=== PATIENT | female | born 1940 | race Caucasian/White ===

== ENCOUNTER 2021-07-23 15:58 | Inpatient (IN) | payer MEDICARE ==
[~2021-07-23] VITALS: Ht 152.4 cm; Wt 52.6 kg
[2021-07-23] MEDS ORDERED: ATOR20TA PO (16:18)
[2021-07-23] MEDS ORDERED: MAGN400O6 PO (16:18)
[2021-07-23] MEDS ORDERED: QUET25TA PO (16:18)
[2021-07-23] MEDS ORDERED: DOCU240C26 PO (16:18)
[2021-07-23] MEDS ORDERED: ASCO500C18 PO (16:18)
[2021-07-23] MEDS ORDERED: DIVA-78 PO (16:18)
[2021-07-23] MEDS ORDERED: [UNRECOGNIZED DRUG - CODE] PO (16:33)
[2021-07-23] MEDS ORDERED: TEMA7.5C2 PO (16:33)
[2021-07-23] MEDS ORDERED: ZINC50TA71 PO (16:33)
[2021-07-23] MEDS ORDERED: MAG355OR18 PO (16:33)
[2021-07-23] MEDS ORDERED: COLC0.6C3 PO (16:33)
[2021-07-23] MEDS ORDERED: BENA20TA9 PO (16:33)
[2021-07-23] MEDS ORDERED: LORA-258 PO (16:33)
[2021-07-23] MEDS ORDERED: CYAN-10 IJ (16:33)
[2021-07-23] MEDS ORDERED: MULT-213 PO (16:33)
[2021-07-23] MEDS ORDERED: ACET-2154 PO (16:33)
[2021-07-23] MEDS ORDERED: DIVA250T4 PO (16:33)
[2021-07-23] MEDS ORDERED: QUET100T PO (16:33)
[2021-07-23] MEDS ORDERED: FAMO20TA8 PO (16:33)
[2021-07-23] MEDS ORDERED: DIVA125T2 PO (16:33)
[2021-07-23] MEDS ORDERED: ZINC SULFATE PO (16:33)
[2021-07-23] MEDS ORDERED: PSYL660P17 PO (16:35)
[2021-07-23] MEDS ORDERED: SIME80TA15 PO (16:35)
[2021-07-23] MEDS ORDERED: MEMA10TA PO (16:35)
[2021-07-23] MEDS ORDERED: SUVO5TAB PO (16:35)
[2021-07-23] MEDS ORDERED: ATEN50TA PO (16:35)
[2021-07-23] MEDS ORDERED: NA P133E RC (16:35)
[2021-07-23] MEDS ORDERED: CHOL200026 PO (16:37)
[2021-07-23 16:51] LABS: HEMATOCRIT 32.7 % (31.2-41.9); MEAN CORPUSCULAR HEMOGLOBIN 30.6 uug (24.7-32.8); MEAN CORPUSCULAR VOLUME 91.2 fL (75.5-95.3); PLATELET COUNT (AUTO) 179 K/uL (179-408)
[2021-07-23 17:00] LABS: CARBON DIOXIDE 30 mmol/L (21-32); CHLORIDE 105 mmol/L (98-107); ETHANOL < 3 MG/DL (0-0); GLUCOSE 110 mg/dL (74-106); POTASSIUM 4.4 mmol/L (3.5-5.1); UREA NITROGEN, BLOOD 32 mg/dL (7-18)
[2021-07-23 17:06] LABS: ACETAMINOPHEN < 2.0 ug/mL (10-30)
[2021-07-23 17:08] LABS: ALANINE AMINOTRANSFERASE 22 U/L (14-59); ALKALINE PHOSPHATASE 54 U/L (50-136); ASPARTATE AMINOTRANSFERASE 13 U/L (15-37); BILIRUBIN,DIRECT < 0.1 mg/dL (0.0-0.2); BILIRUBIN,TOTAL 0.2 mg/dL (0.2-1.0); TOTAL PROTEIN, SERUM 6.1 g/dL (6.4-8.2)
[2021-07-23 17:13] LABS: THYROID STIMULATING HORMONE 2.064 mIU/mL (0.358-3.740)
[2021-07-23] MEDS ORDERED: LORAZEPAM 2 MG/1 ML VIAL IM ONE ×2 (17:30→21:30)
--- NOTE | 2021-07-23 17:31 | NUR ---
PATIENT MEDICAL CLEARED BY DR TOLLIVER. CALLED [facility] WILL COME TO EVALUATE PATIENT.
[2021-07-23] MEDS ORDERED: LORAZEPAM 2 MG/1 ML VIAL ONE ×2 (17:36→21:44)
--- NOTE | 2021-07-23 22:12 | NUR ---
pt admitted to mental health after being evaluated in the department by PET packaging machine operator. pt was found to be a danger to her self. Accordig to report rec'd upon dining room captain arrival, pt had been verbally and physically absubive towards other residents and the staff. pt has been unwilling to follow direction since arriving in the dept, this evening. pt is shouting curse words and demading various items, when given requested item pt is longer interested in it. Report given to Gil on accepting unit, all paerwork accounted for including original hold. vitals stable
[2021-07-23] MEDS ORDERED: MAGNESIUM HYDROXIDE 30 ML LIQUID UDC PO PRN (22:15)
[2021-07-23] MEDS ORDERED: BLOOD SUGAR DIAGNOSTIC 1 EACH STRIP VI ONE (22:15)
[2021-07-23] MEDS ORDERED: MAG HYDROX/AL HYDROX/SIMETH 30 ML LIQUID UDC PO PRN (22:15)
[2021-07-23 22:30] VITALS: BP 134/53
--- NOTE | 2021-07-24 02:31 | NUR ---
Received to care around 2230 from the ER, on a 72 hour hold for danger to others.gravely disabled, A transfer from [place]. According to the hold, she verbally abusive at her facility, lashing out and attempting to kill staff, non compliant with medications, spitting at other residents, paranoid and suspicious that people were talking behind her back, and that staff were trying to steal from her, and she also attempted to leave the facility. Upon arrival, she was a little groggy, after getting an IM injection of Ativan, in the ER. She was oriented to person only, having no recollection of previous events, nor knowing where she was, or how she got here. She fell asleep fairly quickly after arriving, and has been asleep ever since, except for one episode of going to the bathroom, which she needed assistance with, due to unsteady gait. She was verbally hostile, and easily agitated, but went right back to sleep, with no distress, noted.
--- NOTE | 2021-07-24 02:43 | NUR ---
Addendum;pt was advised of her hold, and given patients rights handbook.
[2021-07-24 07:30] VITALS: BP 110/46
[2021-07-24] MEDS ORDERED: MAG HYDROX/AL HYDROX/SIMETH 30 ML LIQUID UDC PO PRN (08:45)
[2021-07-24] MEDS ORDERED: MAGNESIUM HYDROXIDE 30 ML LIQUID UDC PO PRN (08:45)
[2021-07-24] MEDS ORDERED: FLEET ENEMA 133 ML BOTTLE RC PRN (08:45)
[2021-07-24] MEDS ORDERED: Medication Not On Formulary EA (Ascorbic Acid (Vitamin C) 500 MG) PO SCH (09:00)
[2021-07-24] MEDS ORDERED: Medication Not On Formulary EA (Cholecalciferol (Vitamin D3) (Vitamin D3) 1 TAB) PO SCH (09:00)
[2021-07-24] MEDS ORDERED: Medication Not On Formulary EA (Colchicine 0.6 MG) PO SCH (09:00)
[2021-07-24] MEDS ORDERED: ZINC GLUCONATE 50 MG PO SCH (09:00)
[2021-07-24] MEDS ORDERED: Medication Not On Formulary EA (Multivitamins W-Minerals (Multivitamin With Minerals) 1 PO SCH (09:00)
[2021-07-24] MEDS ORDERED: Medication Not On Formulary EA (Docusate Calcium 240 MG) PO SCH (09:00)
[2021-07-24] MEDS: CHOLECALCIFEROL 1,000 UNIT TABLET PO SCH (10:03)
[2021-07-24] MEDS: DOCUSATE SODIUM 250 MG CAPSULE PO SCH (10:03)
[2021-07-24] MEDS: COLCHICINE 0.6 MG TABLET PO SCH (10:03)
[2021-07-24] MEDS: ASCORBIC ACID 500 MG TABLET PO SCH (10:03)
[2021-07-24] MEDS: MULTIVIT, IRON, MIN NO. 8, FA TABLET PO SCH (10:03)
[2021-07-24] MEDS: MEMANTINE HCL 5 MG TABLET PO SCH ×2 (10:03→16:00)
[2021-07-24] MEDS: FAMOTIDINE 20 MG TABLET PO SCH (10:03)
[2021-07-24] MEDS: BENAZEPRIL HCL 10 MG TABLET PO SCH (10:03)
[2021-07-24] MEDS: BOOST PLUS 237 ML LIQUID (VERY VANILLA) PO SCH ×2 (10:04→17:00)
[2021-07-24] MEDS: SIMETHICONE 80 MG TAB.CHEW PO SCH (10:04)
[2021-07-24] MEDS: DIVALPROEX SPRINKLE 125 MG CAP.SPRINK PO SCH ×3 (12:06→20:45)
[2021-07-24] MEDS: QUETIAPINE FUMARATE 25 MG TABLET PO SCH ×2 (12:06→16:00)
[2021-07-24 16:00] VITALS: BP 129/42
[2021-07-24] MEDS ORDERED: CYANOCOBALAMIN 1000 MCG/ML VIAL IM SCH (17:00)
[2021-07-24 20:00] VITALS: BP 159/60
[2021-07-24] MEDS ORDERED: ATORVASTATIN 20 MG TABLET PO SCH (21:00)
[2021-07-24] MEDS ORDERED: QUETIAPINE FUMARATE 25 MG TABLET PO SCH (21:00)
[2021-07-24] MEDS: LORAZEPAM 0.5 MG TABLET PO PRN (21:44)
[2021-07-24] MEDS: ACETAMINOPHEN 325 MG TABLET PO PRN (21:45)
[2021-07-24] MEDS: TEMAZEPAM 7.5 MG CAPSULE PO PRN (23:28)
--- NOTE | 2021-07-25 04:30 | NUR ---
Received to care, up in troy chair, confused, forgetful, demanding, and verbally abusive. PRN Ativan and Restoril were both given before midnight, and she went to sleep. She was assisted to the bathroom twice during the night, but continues to sleep. No distress, noted.
[2021-07-25] MEDS: MULTIVIT, IRON, MIN NO. 8, FA TABLET PO SCH (08:22)
[2021-07-25] MEDS: CHOLECALCIFEROL 1,000 UNIT TABLET PO SCH (08:22)
[2021-07-25] MEDS: ASCORBIC ACID 500 MG TABLET PO SCH (08:22)
[2021-07-25] MEDS: DIVALPROEX SPRINKLE 125 MG CAP.SPRINK PO SCH ×3 (08:22→17:37)
[2021-07-25] MEDS: QUETIAPINE FUMARATE 25 MG TABLET PO SCH ×3 (08:22→17:38)
[2021-07-25] MEDS: ZINC SULFATE 220 MG CAPSULE PO SCH (08:23)
[2021-07-25] MEDS: MEMANTINE HCL 5 MG TABLET PO SCH ×2 (08:23→17:37)
[2021-07-25] MEDS: DOCUSATE SODIUM 250 MG CAPSULE PO SCH (08:23)
[2021-07-25] MEDS: COLCHICINE 0.6 MG TABLET PO SCH (08:23)
[2021-07-25] MEDS: FAMOTIDINE 20 MG TABLET PO SCH (08:23)
[2021-07-25] MEDS: BENAZEPRIL HCL 10 MG TABLET PO SCH (08:24)
[2021-07-25] MEDS: SIMETHICONE 80 MG TAB.CHEW PO SCH (08:24)
[2021-07-25] MEDS: BOOST PLUS 237 ML LIQUID (VERY VANILLA) PO SCH ×2 (08:25→17:40)
[2021-07-25 08:33] VITALS: BP 110/52
[2021-07-25] MEDS: NITROFURANTOIN/NITROFURAN MAC 100 MG CAPSULE PO SCH ×2 (14:09→22:04)
[2021-07-25] MEDS ORDERED: OLANZAPINE 10 MG VIAL IM ONE (14:30)
--- NOTE | 2021-07-25 14:46 | NUR ---
Patient became agitated, aggressive, combative, bitting, spitting, scratching staff, trying to jump out of the chair, verbally abusive calling females "cunt", disoriented, confused, forgetful, accusatory saying "I'm going to calos you and this hospital". Dr. Jimenez was called and ordered Zyprexa 5 mg IM, medication was given at 14:35, will be monitored for effectiveness. Two nurses were necessary to administer medication in a safe way, but no force was needed or applied. Medication was administer in the left deltoid. Fall and safety precautions implemented.
[2021-07-25 15:40] LABS: *BILIRUBIN,URIN NEGATIVE (NEGATIVE); *BLOOD, URINE NEGATIVE (NEGATIVE); *CLARITY,URINE CLEAR (CLEAR); *COLOR,URINE YELLOW (YELLOW); *KETONES,URINE TRACE (NEGATIVE); *UROBILINOGEN,URINE 0.2 E.U./dl (NORMAL); LEUKOCYTE ESTERASE ,URINE TRACE (NEGATIVE); NITRITE, URINE NEGATIVE (NEGATIVE); UGLUCOSE NEGATIVE (NEGATIVE)
[2021-07-25 15:58] VITALS: BP 119/119
--- NOTE | 2021-07-25 16:01 | NUR ---
Received patient awake in her room. A/O X 1-2 to person. Pt. is confused, forgetful, disoriented, accusatory, cussing at staff, agitated, hyperverbal. Compliant with medications. No facial grimaces, frowning indicating pain. Respirations are regular and unlabored. Vital signs within normal limits. Reassurance given. Fall and safety precautions implemented.
[2021-07-25 19:14] LABS: BACTERIA,URINE FEW /HPF (NONE SEEN); RBC,URINE 0-3 /HPF (0-3); SQUAMOUS EPITHELIAL CELL,UR NONE SEEN /HPF (NONE SEEN)
[2021-07-25 20:11] VITALS: BP 128/59
[2021-07-25] MEDS ORDERED: QUETIAPINE FUMARATE 25 MG TABLET PO SCH (21:00)
[2021-07-25] MEDS: ATORVASTATIN 40 MG TABLET PO SCH (22:05)
[2021-07-26 07:30] VITALS: BP 152/81
[2021-07-26] MEDS: DIVALPROEX SPRINKLE 125 MG CAP.SPRINK PO SCH ×3 (08:46→17:26)
[2021-07-26] MEDS: DOCUSATE SODIUM 250 MG CAPSULE PO SCH (08:46)
[2021-07-26] MEDS: NITROFURANTOIN/NITROFURAN MAC 100 MG CAPSULE PO SCH ×2 (08:46→20:05)
[2021-07-26] MEDS: ASCORBIC ACID 500 MG TABLET PO SCH (08:46)
[2021-07-26] MEDS: MEMANTINE HCL 5 MG TABLET PO SCH ×2 (08:46→17:26)
[2021-07-26] MEDS: ZINC SULFATE 220 MG CAPSULE PO SCH (08:46)
[2021-07-26] MEDS: CHOLECALCIFEROL 1,000 UNIT TABLET PO SCH (08:46)
[2021-07-26] MEDS: MULTIVIT, IRON, MIN NO. 8, FA TABLET PO SCH (08:46)
[2021-07-26] MEDS: QUETIAPINE FUMARATE 25 MG TABLET PO SCH ×3 (08:47→20:05)
[2021-07-26] MEDS: FAMOTIDINE 20 MG TABLET PO SCH (08:47)
[2021-07-26] MEDS: COLCHICINE 0.6 MG TABLET PO SCH (08:49)
[2021-07-26] MEDS: BENAZEPRIL HCL 10 MG TABLET PO SCH (08:49)
[2021-07-26] MEDS: SIMETHICONE 80 MG TAB.CHEW PO SCH (08:50)
[2021-07-26] MEDS: BOOST PLUS 237 ML LIQUID (VERY VANILLA) PO SCH (08:56)
[2021-07-26] MEDS ORDERED: QUETIAPINE FUMARATE 25 MG TABLET PO ONE (14:45)
[2021-07-26 15:12] VITALS: BP 147/83
--- NOTE | 2021-07-26 15:39 | NUR ---
Received patient awake in the hallway. A/O X 1 -2 to person. Pt. is very confused, forgetful, needy, demanding, agitated and combative at times, cussing and yells at staff, accusatory "Do you have my purse?" "I don't trust you". Requires more than minimal assistance with ADL. Reassurance given. Denies pain. Denies SI/HI AH/VH. Ambulates with 2 people assistance. Continent of bladder and bowel. Fall and safety precautions implemented. [id number] by fax today.
[2021-07-26] MEDS: LORAZEPAM 0.5 MG TABLET PO PRN (16:12)
--- NOTE | 2021-07-26 16:22 | NUR ---
JANET Initial Discharge Plan: Pt admitted to [facility] on a 5150 hold for a danger to others and gravely disabled adult. [facility] [address] [place] [address], [phone] ([phone]) and [facility]uyler who stated pt is welcome back upon discharge. Pt's daughter, Hue ([phone]) and her brother stated they would like pt to return to her assisted living. JANET will continue to work with pt, family and MD to ensure a safe and proper discharge plan.
--- NOTE | 2021-07-26 16:23 | NUR ---
JANET Admit Source: Pt admitted to [facility] on a 5150 hold for a danger to others and gravely disabled adult. JANET contacted, [facility] [address] [place] [address], [phone] ([phone]) and Schuyler who stated pt is welcome back upon discharge. Pt's daughter, Hue ([phone]) and her brother stated they would like pt to return to her assisted living. JANET will continue to work with pt, family and MD to ensure a safe and proper discharge plan.
[2021-07-26] MEDS: ENSURE ENLIVE (VAN) 240 ML LIQUID PO SCH (17:00)
[2021-07-26] MEDS ORDERED: QUETIAPINE FUMARATE 25 MG TABLET PO SCH (17:00)
[2021-07-26 19:59] VITALS: BP 99/50
[2021-07-26] MEDS: ATORVASTATIN 40 MG TABLET PO SCH (20:05)
[2021-07-26 20:12] VITALS: BP 115/66
[2021-07-26] MEDS: TEMAZEPAM 7.5 MG CAPSULE PO PRN (23:00)
--- NOTE | 2021-07-27 05:34 | NUR ---
GPS: Remain confused and disoriented. uncooperative with care, verbally abusive to staff. resting in bed comfortably. no agitation noted at this time. continue plan of care.
--- NOTE | 2021-07-27 05:55 | NUR ---
slept 4.45 hrs through the night.
[2021-07-27 07:30] VITALS: BP 102/51
[2021-07-27] MEDS ORDERED: QUETIAPINE FUMARATE 25 MG TABLET PO SCH (08:00)
[2021-07-27] MEDS: CHOLECALCIFEROL 1,000 UNIT TABLET PO SCH (08:26)
[2021-07-27] MEDS: SIMETHICONE 80 MG TAB.CHEW PO SCH (08:26)
[2021-07-27] MEDS: ASCORBIC ACID 500 MG TABLET PO SCH (08:26)
[2021-07-27] MEDS: COLCHICINE 0.6 MG TABLET PO SCH (08:26)
[2021-07-27] MEDS: ENSURE ENLIVE (VAN) 240 ML LIQUID PO SCH ×2 (08:28→16:25)
[2021-07-27] MEDS: BENAZEPRIL HCL 10 MG TABLET PO SCH (08:28)
[2021-07-27] MEDS: FAMOTIDINE 20 MG TABLET PO SCH (08:45)
[2021-07-27] MEDS: MEMANTINE HCL 5 MG TABLET PO SCH ×2 (08:45→16:25)
[2021-07-27] MEDS: DOCUSATE SODIUM 250 MG CAPSULE PO SCH (08:45)
[2021-07-27] MEDS: NITROFURANTOIN/NITROFURAN MAC 100 MG CAPSULE PO SCH (08:45)
[2021-07-27] MEDS: MULTIVIT, IRON, MIN NO. 8, FA TABLET PO SCH (08:45)
[2021-07-27] MEDS: DIVALPROEX SPRINKLE 125 MG CAP.SPRINK PO SCH ×2 (08:45→13:03)
[2021-07-27] MEDS: ZINC SULFATE 220 MG CAPSULE PO SCH (08:46)
[2021-07-27] MEDS: LORAZEPAM 0.5 MG TABLET PO PRN ×2 (09:30→17:13)
--- NOTE | 2021-07-27 09:30 | NUR ---
Patient is noted with verbal abuse, screaming, saying foul words, and with agitation. Ativan PRN given. Will continue to monitor.
[2021-07-27] MEDS: QUETIAPINE FUMARATE 25 MG TABLET PO SCH ×3 (13:03→20:14)
[2021-07-27 15:04] VITALS: BP 155/85
[2021-07-27] MEDS ORDERED: DIVALPROEX SPRINKLE 125 MG CAP.SPRINK PO SCH (17:00)
--- NOTE | 2021-07-27 18:38 | NUR ---
The patient remained stable. Denies SI. Denies pain. PRN med given for agitation. Frequent visual checks done. no distress identified during the shift. all needs attended. safety measures maintained. will endorse to the next shift for continuity of care.
[2021-07-27 20:00] VITALS: BP 109/65
[2021-07-27] MEDS: ATORVASTATIN 40 MG TABLET PO SCH (20:14)
[2021-07-27] MEDS: ACETAMINOPHEN 325 MG TABLET PO PRN (20:15)
[2021-07-27] MEDS: TEMAZEPAM 7.5 MG CAPSULE PO PRN (21:28)
--- NOTE | 2021-07-28 06:42 | NUR ---
Patient was anxious and restless beginning of shift. Calmed down after and was given Restoril for sleep and Tylenol 650mg for complain of leg pain and effective. Slept 9.45hours.
[2021-07-28 07:30] VITALS: BP 113/47
[2021-07-28 07:58] LABS: MEAN CORPUSCULAR HEMOGLOBIN 30.8 uug (24.7-32.8); MEAN CORPUSCULAR VOLUME 91.1 fL (75.5-95.3); PLATELET COUNT (AUTO) 196 K/uL (179-408)
[2021-07-28 08:20] LABS: BILIRUBIN,TOTAL 0.4 mg/dL (0.2-1.0); CREATININE 0.8 mg/dL (0.6-1.3); POTASSIUM 3.8 mmol/L (3.5-5.1); TOTAL PROTEIN, SERUM 6.1 g/dL (6.4-8.2)
[2021-07-28] MEDS: COLCHICINE 0.6 MG TABLET PO SCH (08:59)
[2021-07-28] MEDS: SIMETHICONE 80 MG TAB.CHEW PO SCH (09:00)
[2021-07-28] MEDS: ZINC SULFATE 220 MG CAPSULE PO SCH (09:00)
[2021-07-28] MEDS: BENAZEPRIL HCL 10 MG TABLET PO SCH (09:00)
[2021-07-28] MEDS: CHOLECALCIFEROL 1,000 UNIT TABLET PO SCH (09:00)
[2021-07-28] MEDS: DOCUSATE SODIUM 250 MG CAPSULE PO SCH (09:02)
[2021-07-28] MEDS: MEMANTINE HCL 5 MG TABLET PO SCH ×2 (09:03→21:07)
[2021-07-28] MEDS: DIVALPROEX SPRINKLE 125 MG CAP.SPRINK PO SCH (09:03)
[2021-07-28] MEDS: QUETIAPINE FUMARATE 25 MG TABLET PO SCH ×4 (09:03→21:08)
[2021-07-28] MEDS: MULTIVIT, IRON, MIN NO. 8, FA TABLET PO SCH (09:03)
[2021-07-28] MEDS: FAMOTIDINE 20 MG TABLET PO SCH (09:03)
[2021-07-28] MEDS: ENSURE ENLIVE (VAN) 240 ML LIQUID PO SCH ×2 (09:03→17:46)
[2021-07-28] MEDS: ASCORBIC ACID 500 MG TABLET PO SCH (09:03)
[2021-07-28] MEDS ORDERED: QUETIAPINE FUMARATE 25 MG TABLET PO PRN (11:00)
[2021-07-28 16:00] VITALS: BP 108/47
--- NOTE | 2021-07-28 19:00 | NUR ---
Patient was noted with confusion. forgetfulness. with episodes of yelling/screaming with foul words. Denies SI. Denies pain. Frequent visual checks done. no distress identified during the shift. all needs attended. safety measures maintained. will endorse to the next shift for continuity of care.
[2021-07-28 20:00] VITALS: BP 120/55
--- NOTE | 2021-07-28 20:25 | NUR ---
Unable to give 1700H-1800H due meds due to no access to omnicell.
[2021-07-28] MEDS: ATORVASTATIN 40 MG TABLET PO SCH (21:07)
[2021-07-28] MEDS: LORAZEPAM 0.5 MG TABLET PO PRN (21:13)
--- NOTE | 2021-07-29 06:50 | NUR ---
The patient remained stable during the shift. Noted with some episodes of foul words and shouting to the staff. Assisted to the bathroom, unsteady gait, high risk for falls. Denies SI. Denies pain. Frequent visual checks done. no distress identified during the shift. all needs attended. safety measures maintained. will endorse to the next shift for continuity of care.
--- NOTE | 2021-07-29 06:53 | NUR ---
Patient slept 6.30 hrs. no acute distress identified.
[2021-07-29 07:22] LABS: ALANINE AMINOTRANSFERASE 82 U/L (14-59); ALKALINE PHOSPHATASE 107 U/L (50-136); ASPARTATE AMINOTRANSFERASE 44 U/L (15-37); BILIRUBIN,DIRECT < 0.1 mg/dL (0.0-0.2); BILIRUBIN,TOTAL 0.3 mg/dL (0.2-1.0)
[2021-07-29 07:30] VITALS: BP 103/49
[2021-07-29] MEDS: BENAZEPRIL HCL 10 MG TABLET PO SCH (09:00)
[2021-07-29] MEDS: ASCORBIC ACID 500 MG TABLET PO SCH (10:00)
[2021-07-29] MEDS: FAMOTIDINE 20 MG TABLET PO SCH (10:00)
[2021-07-29] MEDS: CHOLECALCIFEROL 1,000 UNIT TABLET PO SCH (10:00)
[2021-07-29] MEDS: MULTIVIT, IRON, MIN NO. 8, FA TABLET PO SCH (10:00)
[2021-07-29] MEDS: QUETIAPINE FUMARATE 25 MG TABLET PO SCH ×3 (10:00→17:31)
[2021-07-29] MEDS: ZINC SULFATE 220 MG CAPSULE PO SCH (10:00)
[2021-07-29] MEDS: SIMETHICONE 80 MG TAB.CHEW PO SCH (10:01)
[2021-07-29] MEDS: COLCHICINE 0.6 MG TABLET PO SCH (10:02)
[2021-07-29] MEDS: ENSURE ENLIVE (VAN) 240 ML LIQUID PO SCH ×2 (10:02→17:31)
[2021-07-29] MEDS: MEMANTINE HCL 5 MG TABLET PO SCH ×2 (10:10→17:31)
[2021-07-29] MEDS: DOCUSATE SODIUM 250 MG CAPSULE PO SCH (10:10)
--- NOTE | 2021-07-29 10:39 | NUR ---
JANET Family Contact: SW called pt's daughter, Hue twice ([phone]) and left a voicemail for a call back regarding patients discharge plan next week.
--- NOTE | 2021-07-29 11:06 | NUR ---
PT RECEIVED ON BED, AWAKE AND DENIES ANY PAIN OR DISCOMFORT. PT COMPLIANT WITH CARE AND MEDICATIONS. NO AGITATION AT THIS TIME. PT DEPRESSED, ISOLATIVE. ENCOURAGED TO PARTICIPATE WITH GROUP ACTIVITIES. PT ABLE TO MAKE NEEDS KNOWN. SEEN PT WALKING ON A HALLWAY, ASSISTED DURING PHYSICAL THERAPY SESSION. WILL MONITOR ON SAFETY.
[2021-07-29] MEDS: LORAZEPAM 0.5 MG TABLET PO PRN (13:20)
--- NOTE | 2021-07-29 13:23 | NUR ---
PT ON BED, ANXIOUS AND WANT TO GET OUT OF BED. HYPERVERBAL AND VERBALLY ABUSIVE TO STAFF STATING "YOU GUYS ARE FULL OF S" . PT GIVEN ATIVAN 0.5MG PO AND TOLERATED WELL. DENIES ANY PAIN OR DISCOMFORT. ASSISTED PT TO RESTROOM.
[2021-07-29 16:00] VITALS: BP 106/40
--- NOTE | 2021-07-29 18:41 | NUR ---
PT CONTINUES TO BE VERBALLY ABUSIVE WITH STAFF. ATTENTION SEEKER. DENIES PAIN OR DISCOMFORT. PT FORGETFUL AND CONFUSED. PT ALWAYS ASKING WHERE HER PURSE AND POCKETBOOK. ORIENTED TO REALITY BUT PT FORGETS. WILL MONITOR FOR SAFETY.
[2021-07-29 20:00] VITALS: BP 108/57
[2021-07-29] MEDS: QUETIAPINE FUMARATE 100 MG TABLET PO SCH (20:15)
[2021-07-29] MEDS: ATORVASTATIN 40 MG TABLET PO SCH (20:15)
[2021-07-29] MEDS: TEMAZEPAM 7.5 MG CAPSULE PO PRN (23:01)
--- NOTE | 2021-07-29 23:18 | NUR ---
PATIENT RECEIVED IN MALI CHAIR FRONT OF NURSING STATION. PATIENT IS LABILE, NEEDY, ATTENTION SEEKING, AND CONTINUES TO YELL AND SCREAM. PATIENT DENIES PAIN AT THIS TIME AND DENIES SI. PATIENT IS COMPLAINT WITH MEDICATION. SAFETY MEASURES RENDERED. PATIENT IS FORGETFUL AND CONFUSED, AND REQUIRES CONSTANT REDIRECTION.
[2021-07-30 07:30] VITALS: BP 151/56
[2021-07-30] MEDS: QUETIAPINE FUMARATE 25 MG TABLET PO SCH ×3 (08:22→16:37)
[2021-07-30] MEDS: DOCUSATE SODIUM 250 MG CAPSULE PO SCH (08:22)
[2021-07-30] MEDS: COLCHICINE 0.6 MG TABLET PO SCH (08:22)
[2021-07-30] MEDS: CHOLECALCIFEROL 1,000 UNIT TABLET PO SCH (08:22)
[2021-07-30] MEDS: SIMETHICONE 80 MG TAB.CHEW PO SCH (08:23)
[2021-07-30] MEDS: BENAZEPRIL HCL 10 MG TABLET PO SCH (08:23)
[2021-07-30] MEDS: FAMOTIDINE 20 MG TABLET PO SCH (08:24)
[2021-07-30] MEDS: MULTIVIT, IRON, MIN NO. 8, FA TABLET PO SCH (08:24)
[2021-07-30] MEDS: MEMANTINE HCL 5 MG TABLET PO SCH ×2 (08:24→16:37)
[2021-07-30] MEDS: ZINC SULFATE 220 MG CAPSULE PO SCH (08:25)
[2021-07-30] MEDS: LORAZEPAM 0.5 MG TABLET PO PRN ×2 (08:25→17:57)
[2021-07-30] MEDS: ENSURE ENLIVE (VAN) 240 ML LIQUID PO SCH ×2 (08:25→16:37)
[2021-07-30] MEDS: ASCORBIC ACID 500 MG TABLET PO SCH (08:25)
--- NOTE | 2021-07-30 08:25 | NUR ---
Received in gerichair, yelling, agitated, trying to get out of gerichair. Redirected. Ativan po given. Assisted with meal. Participated with PT, ambulated in the hallway with FWW. Compliant with taking of medications.
--- NOTE | 2021-07-30 13:23 | NUR ---
Lloyd, ate lunch. Assisted to the bathroom then back to [facility]
--- NOTE | 2021-07-30 16:25 | NUR ---
JANET Discharge Update: JANET spoke with pt's daughter, Hue ([phone]) and her brother regarding pt's status. JANET stated that January from admissions at the [facility] ([phone]) stated that pt is welcome back only with significant positive changes. January stated pt is not welcome back if there is no progress due to a disruption for other patients. January stated pt is well admired for many years at [facility], however they have to ensure pt's well-being prior to re-admission. JANET contacted pt's daughter and son and discussed the above information. Hue stated that January spoke with Dr. Jimenez as well and pt will be continually monitored until further notice. Pt as of right now does not have a discharge plan.
[2021-07-30 17:28] VITALS: BP 109/53
[2021-07-30] MEDS: ATORVASTATIN 40 MG TABLET PO SCH (20:19)
[2021-07-30 20:20] VITALS: BP 127/61
[2021-07-30] MEDS: QUETIAPINE FUMARATE 100 MG TABLET PO SCH (20:20)
[2021-07-30] MEDS: TEMAZEPAM 7.5 MG CAPSULE PO PRN (21:16)
[2021-07-31] MEDS: LORAZEPAM 0.5 MG TABLET PO PRN ×2 (02:58→14:12)
--- NOTE | 2021-07-31 04:55 | NUR ---
Received patient in gerichair, yelling at staff and throwing unacceptable verbal comments, agitated, trying to get out of gerichair. Patient continues to look for her purse and pocketbook. Re-assure patient that belongings is in safe keeping. Redirected. Patient compliant with medications. Prn ativan and restoril given. Effective as patient sleeps most of the night. safety measure kept in place.
[2021-07-31 08:07] VITALS: BP 111/55
[2021-07-31 08:29] LABS: HEMATOCRIT 31.2 % (31.2-41.9); MEAN CORPUSCULAR HEMOGLOBIN 31.3 uug (24.7-32.8); MEAN CORPUSCULAR VOLUME 90.9 fL (75.5-95.3); PLATELET COUNT (AUTO) 184 K/uL (179-408)
[2021-07-31 08:37] LABS: BILIRUBIN,TOTAL 0.3 mg/dL (0.2-1.0); CREATININE 0.7 mg/dL (0.6-1.3); POTASSIUM 4.1 mmol/L (3.5-5.1); TOTAL PROTEIN, SERUM 5.7 g/dL (6.4-8.2)
[2021-07-31] MEDS: MULTIVIT, IRON, MIN NO. 8, FA TABLET PO SCH (08:53)
[2021-07-31] MEDS: COLCHICINE 0.6 MG TABLET PO SCH (08:54)
[2021-07-31] MEDS: QUETIAPINE FUMARATE 25 MG TABLET PO SCH ×3 (08:54→16:58)
[2021-07-31] MEDS: DOCUSATE SODIUM 250 MG CAPSULE PO SCH (08:54)
[2021-07-31] MEDS: MEMANTINE HCL 5 MG TABLET PO SCH ×2 (08:54→16:58)
[2021-07-31] MEDS: FAMOTIDINE 20 MG TABLET PO SCH (08:54)
[2021-07-31] MEDS: ASCORBIC ACID 500 MG TABLET PO SCH (08:54)
[2021-07-31] MEDS: CHOLECALCIFEROL 1,000 UNIT TABLET PO SCH (08:54)
[2021-07-31] MEDS: ZINC SULFATE 220 MG CAPSULE PO SCH (08:54)
[2021-07-31] MEDS: BENAZEPRIL HCL 10 MG TABLET PO SCH (08:55)
[2021-07-31] MEDS: SIMETHICONE 80 MG TAB.CHEW PO SCH (08:55)
[2021-07-31] MEDS: ENSURE ENLIVE (VAN) 240 ML LIQUID PO SCH ×2 (08:56→16:58)
--- NOTE | 2021-07-31 15:37 | NUR ---
pt is in the gerichair, frequent toileting. Patient has been screaming profanity all day and has been disrespectful to staff.
[2021-07-31 16:24] VITALS: BP 107/42
[2021-07-31 20:00] VITALS: BP 105/59
[2021-07-31] MEDS: ATORVASTATIN 40 MG TABLET PO SCH (20:46)
[2021-07-31] MEDS: QUETIAPINE FUMARATE 100 MG TABLET PO SCH (20:47)
[2021-07-31 21:00] VITALS: BP 112/59
[2021-07-31] MEDS: TEMAZEPAM 7.5 MG CAPSULE PO PRN (21:45)
--- NOTE | 2021-08-01 06:32 | NUR ---
Remain cooperative with with staff. compliant with meds and care. slept 6.30 hrs through nthe night after restoril 7.5 mg po given for safety.. assisted with adl's. continue plan of care.
[2021-08-01 07:47] VITALS: BP 116/48
[2021-08-01] MEDS: DOCUSATE SODIUM 250 MG CAPSULE PO SCH (09:27)
[2021-08-01] MEDS: ASCORBIC ACID 500 MG TABLET PO SCH (09:27)
[2021-08-01] MEDS: FAMOTIDINE 20 MG TABLET PO SCH (09:27)
[2021-08-01] MEDS: MULTIVIT, IRON, MIN NO. 8, FA TABLET PO SCH (09:27)
[2021-08-01] MEDS: ZINC SULFATE 220 MG CAPSULE PO SCH (09:27)
[2021-08-01] MEDS: MEMANTINE HCL 5 MG TABLET PO SCH ×2 (09:27→17:10)
[2021-08-01] MEDS: LORAZEPAM 0.5 MG TABLET PO PRN ×3 (09:27→21:03)
[2021-08-01] MEDS: CHOLECALCIFEROL 1,000 UNIT TABLET PO SCH (09:27)
[2021-08-01] MEDS: ENSURE ENLIVE (VAN) 240 ML LIQUID PO SCH ×2 (09:28→17:11)
[2021-08-01] MEDS: BENAZEPRIL HCL 10 MG TABLET PO SCH (09:30)
[2021-08-01] MEDS: SIMETHICONE 80 MG TAB.CHEW PO SCH (09:30)
[2021-08-01] MEDS: COLCHICINE 0.6 MG TABLET PO SCH (09:31)
[2021-08-01] MEDS: QUETIAPINE FUMARATE 25 MG TABLET PO SCH ×3 (10:09→17:13)
--- NOTE | 2021-08-01 16:35 | NUR ---
Pt yells out profanity, gets out of bed. Pt has been placed in geriatric chair at nurses view. Takes medications as prescribed when reoriented. Comfort measures provided, toileting needs met frequently. Pt refused to shower today.
[2021-08-01 16:38] VITALS: BP 134/49
[2021-08-01 20:14] VITALS: BP 127/53
[2021-08-01] MEDS: QUETIAPINE FUMARATE 100 MG TABLET PO SCH (21:03)
[2021-08-01] MEDS: ATORVASTATIN 40 MG TABLET PO SCH (21:03)
[2021-08-01] MEDS: TEMAZEPAM 7.5 MG CAPSULE PO PRN (22:04)
[2021-08-02 07:51] VITALS: BP 123/59
[2021-08-02] MEDS: FAMOTIDINE 20 MG TABLET PO SCH (09:00)
[2021-08-02] MEDS: MULTIVIT, IRON, MIN NO. 8, FA TABLET PO SCH (09:06)
[2021-08-02] MEDS: CHOLECALCIFEROL 1,000 UNIT TABLET PO SCH (09:06)
[2021-08-02] MEDS: DOCUSATE SODIUM 250 MG CAPSULE PO SCH (09:06)
[2021-08-02] MEDS: ZINC SULFATE 220 MG CAPSULE PO SCH (09:06)
[2021-08-02] MEDS: BENAZEPRIL HCL 10 MG TABLET PO SCH (09:07)
[2021-08-02] MEDS: MEMANTINE HCL 5 MG TABLET PO SCH ×2 (09:07→17:00)
[2021-08-02] MEDS: ASCORBIC ACID 500 MG TABLET PO SCH (09:07)
[2021-08-02] MEDS: COLCHICINE 0.6 MG TABLET PO SCH (09:07)
[2021-08-02] MEDS: ENSURE ENLIVE (VAN) 240 ML LIQUID PO SCH ×2 (09:08→17:37)
[2021-08-02] MEDS: SIMETHICONE 80 MG TAB.CHEW PO SCH (09:08)
[2021-08-02] MEDS: QUETIAPINE FUMARATE 25 MG TABLET PO SCH ×3 (09:11→17:37)
[2021-08-02] MEDS: GABAPENTIN 100 MG CAPSULE PO SCH ×2 (13:46→17:37)
[2021-08-02 16:23] VITALS: BP 104/53
--- NOTE | 2021-08-02 16:29 | NUR ---
Received patient awake in the hallway. A/O X 1 -2 to person. Pt. is confused, forgetful, needy, demanding, agitated at times, curses and yells at staff. Requires more than minimal assistance with ADL. Reassurance given. Denies pain. Denies SI/HI AH/VH. Continent. Active listening provided. Fall and safety precautions implemented.
[2021-08-02 20:00] VITALS: BP 112/61
[2021-08-02] MEDS: ATORVASTATIN 40 MG TABLET PO SCH (20:19)
[2021-08-02] MEDS: QUETIAPINE FUMARATE 100 MG TABLET PO SCH (20:19)
[2021-08-03] MEDS: TEMAZEPAM 7.5 MG CAPSULE PO PRN ×2 (00:24→20:27)
[2021-08-03] MEDS: LORAZEPAM 0.5 MG TABLET PO PRN ×3 (01:23→22:41)
--- NOTE | 2021-08-03 05:56 | NUR ---
received patient in troy chair, A&0x2. Patient forgetful and with anger issues, patient verbalizing profanity against staff. set limit to patient. Patient taken to day room to interact with other residents, patient appears much calmer and pleasant> PRN medications given. toileting needs provided to patient. Assisted to bed and slept throughout the shift. Safety measure kept in place.
[2021-08-03 08:00] VITALS: BP 115/64
[2021-08-03] MEDS: CHOLECALCIFEROL 1,000 UNIT TABLET PO SCH (08:29)
[2021-08-03] MEDS: DOCUSATE SODIUM 250 MG CAPSULE PO SCH (08:29)
[2021-08-03] MEDS: MEMANTINE HCL 5 MG TABLET PO SCH ×2 (08:29→16:56)
[2021-08-03] MEDS: ZINC SULFATE 220 MG CAPSULE PO SCH (08:29)
[2021-08-03] MEDS: GABAPENTIN 100 MG CAPSULE PO SCH ×3 (08:30→16:57)
[2021-08-03] MEDS: ASCORBIC ACID 500 MG TABLET PO SCH (08:30)
[2021-08-03] MEDS: MULTIVIT, IRON, MIN NO. 8, FA TABLET PO SCH (08:30)
[2021-08-03] MEDS: BENAZEPRIL HCL 10 MG TABLET PO SCH (08:32)
[2021-08-03] MEDS: COLCHICINE 0.6 MG TABLET PO SCH (08:32)
[2021-08-03] MEDS: QUETIAPINE FUMARATE 25 MG TABLET PO SCH ×3 (08:47→16:56)
[2021-08-03] MEDS: ENSURE ENLIVE (VAN) 240 ML LIQUID PO SCH ×2 (08:48→16:58)
[2021-08-03] MEDS: FAMOTIDINE 20 MG TABLET PO SCH (08:59)
[2021-08-03] MEDS: SIMETHICONE 80 MG TAB.CHEW PO SCH (08:59)
[2021-08-03 16:00] VITALS: BP 123/75
[2021-08-03 20:00] VITALS: BP 122/59
[2021-08-03] MEDS: QUETIAPINE FUMARATE 100 MG TABLET PO SCH (20:26)
[2021-08-03] MEDS: ATORVASTATIN 40 MG TABLET PO SCH (20:26)
[2021-08-04 07:41] VITALS: BP 108/86
[2021-08-04] MEDS: COLCHICINE 0.6 MG TABLET PO SCH (08:39)
[2021-08-04] MEDS: DOCUSATE SODIUM 250 MG CAPSULE PO SCH (08:39)
[2021-08-04] MEDS: QUETIAPINE FUMARATE 25 MG TABLET PO SCH ×3 (08:39→17:05)
[2021-08-04] MEDS: SIMETHICONE 80 MG TAB.CHEW PO SCH (08:40)
[2021-08-04] MEDS: BENAZEPRIL HCL 10 MG TABLET PO SCH (08:40)
[2021-08-04] MEDS: MEMANTINE HCL 5 MG TABLET PO SCH ×2 (08:40→17:05)
[2021-08-04] MEDS: MULTIVIT, IRON, MIN NO. 8, FA TABLET PO SCH (08:41)
[2021-08-04] MEDS: GABAPENTIN 100 MG CAPSULE PO SCH ×3 (08:41→17:05)
[2021-08-04] MEDS: CHOLECALCIFEROL 1,000 UNIT TABLET PO SCH (08:42)
[2021-08-04] MEDS: ZINC SULFATE 220 MG CAPSULE PO SCH (08:42)
[2021-08-04] MEDS: ASCORBIC ACID 500 MG TABLET PO SCH (08:42)
[2021-08-04] MEDS: FAMOTIDINE 20 MG TABLET PO SCH (08:44)
[2021-08-04] MEDS: ENSURE ENLIVE (VAN) 240 ML LIQUID PO SCH ×3 (08:45→17:05)
--- NOTE | 2021-08-04 09:27 | NUR ---
Confused, anxious, agitated with episodes of screaming, verbally aggressive. Redirected. Participated with PT, ambulated in the hallway with FWW then placed back to [facility].Compliant with taking of medication
[2021-08-04] MEDS: LORAZEPAM 0.5 MG TABLET PO PRN (09:34)
--- NOTE | 2021-08-04 13:30 | NUR ---
Angry, anxious, screaming. Calmed down after Ativan po given. Redirected Resting after lunch
[2021-08-04 16:00] VITALS: BP 95/51
--- NOTE | 2021-08-04 17:47 | NUR ---
Assisted to the bathroom, then ambulated in the hallway. Assisted with meal but refused, except for dessert.
[2021-08-04 20:17] VITALS: BP 109/52
[2021-08-04] MEDS: ATORVASTATIN 40 MG TABLET PO SCH (20:32)
[2021-08-04] MEDS: QUETIAPINE FUMARATE 100 MG TABLET PO SCH (20:32)
[2021-08-04] MEDS: TEMAZEPAM 7.5 MG CAPSULE PO PRN (20:33)
[2021-08-05] MEDS: LORAZEPAM 0.5 MG TABLET PO PRN ×2 (04:40→20:08)
--- NOTE | 2021-08-05 05:47 | NUR ---
received patient in the hallway, safely sitting in the gerichair. patient yelling to go to bathroom, so assisted to bathroom. Patient can able to hold self but with shakiness noted. Patient placed back in the gerichair for safety, offered snack and patient complied, consumes 70%. Patient remains compliant with medications. Patient assisted to bed @2200, patient slept most of the night with no issues noted. Safety measures in place.
[2021-08-05 08:20] VITALS: BP 110/65
[2021-08-05] MEDS: ASCORBIC ACID 500 MG TABLET PO SCH (08:48)
[2021-08-05] MEDS: GABAPENTIN 100 MG CAPSULE PO SCH (08:48)
[2021-08-05] MEDS: CHOLECALCIFEROL 1,000 UNIT TABLET PO SCH (08:48)
[2021-08-05] MEDS: ZINC SULFATE 220 MG CAPSULE PO SCH (08:49)
[2021-08-05] MEDS: MEMANTINE HCL 5 MG TABLET PO SCH ×2 (08:49→17:20)
[2021-08-05] MEDS: FAMOTIDINE 20 MG TABLET PO SCH (08:49)
[2021-08-05] MEDS: DOCUSATE SODIUM 250 MG CAPSULE PO SCH (08:49)
[2021-08-05] MEDS: QUETIAPINE FUMARATE 25 MG TABLET PO SCH ×3 (08:49→17:20)
[2021-08-05] MEDS: MULTIVIT, IRON, MIN NO. 8, FA TABLET PO SCH (08:49)
[2021-08-05] MEDS: SIMETHICONE 80 MG TAB.CHEW PO SCH (08:51)
[2021-08-05] MEDS: BENAZEPRIL HCL 10 MG TABLET PO SCH (08:51)
[2021-08-05] MEDS: COLCHICINE 0.6 MG TABLET PO SCH (08:51)
[2021-08-05] MEDS: ENSURE ENLIVE (VAN) 240 ML LIQUID PO SCH ×3 (08:51→17:21)
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
--- NOTE | 2021-08-05 11:10 | NUR ---
JANET Discharge Update: JANET contacted pt's daughter Hue ([phone]) and son Andrew ([phone]) and discussed the discharge update. JANET informed Hue and Andrew that due to the experiencing significant positive changes, the discharge is moved from Monday the to this week. JANET informed them of the MD's notes on the reason for earlier discharge. JANET stated that she will contact pt's returning Assisted Living, [facility] and speak to January ([phone]) to prepare for discharge and transportation. Hue and Andrew discussed their needs with home health resources and stated they are aware and agreeable with the updated discharge plan.
[2021-08-05] MEDS: GABAPENTIN 300 MG CAPSULE PO SCH ×2 (12:46→17:20)
--- NOTE | 2021-08-05 14:18 | NUR ---
JANET Discharge Update Note: JANET contacted pt's returning Assisted Living, [facility] and spoke to January ([phone]) to prepare for discharge and transportation. JANET stated pt's daughter Hue ([phone]) and son Andrew ([phone]) are aware and agreeable with the current discharge plan. JANET also discussed pt's need with home health resources for continuation of care post discharge. JANET referred [facility] private transportation for January as she asked about resources. January stated pt is welcome back tomorrow 08/06/21. January stated the hospital needs to send updated notes, medication list and negative covid test prior to admission. JANET reported she will send everything immediately and will wait for January to call JANET to update discharge time on 08/06/21.
--- NOTE | 2021-08-05 14:33 | NUR ---
Social Work Coordination of Care: Purchasing Associate faxed patient's referral packet including: History and Physical, Consultation, Progress Notes, Medication List and Labs to the following facilities for review and possible [facility] placement: [facility] ([phone]) or [facility] ([phone]).
[2021-08-05 16:00] VITALS: BP 128/84
--- NOTE | 2021-08-05 19:09 | NUR ---
GPS: PT WILL BE DISCHARGE TOMORROW AT [facility]. COORDINATED TO DYE JIG OPERATOR RE: PT DISCHARGE TOMORROW. COVID TEST DONE, WAS NEGATIVE. PT VERBALLY ABUSIVE. DENIES ANY PAIN OR DISCOMFORT. CALLING MALE PT "KARINA". SCREAMING NOTED BUT REDIRECTABLE. PT COMPLIANT WITH CARE AND MEDS. ASSISTED TO THE BATHROOM WITH NO AGITATION OR RESISTANCE.
[2021-08-05 20:00] VITALS: BP 94/54
[2021-08-05] MEDS ORDERED: QUETIAPINE FUMARATE 100 MG TABLET PO SCH (21:00)
[2021-08-05] MEDS ORDERED: QUETIAPINE FUMARATE 25 MG TABLET PO SCH (21:00)
[2021-08-05] MEDS: ATORVASTATIN 40 MG TABLET PO SCH (21:14)
[2021-08-05] MEDS: TEMAZEPAM 7.5 MG CAPSULE PO PRN (22:35)
--- NOTE | 2021-08-06 04:43 | NUR ---
Received to care, up in troy chair, confused, forgetful, yelling, demanding, and verbally abusive. Bedtime snack and fluids were offered, but intake remains poor. PRN Ativan and Restoril were both given by 2229, and she went to sleep by 0, or so. She continues to sleep. No distress, noted.
[2021-08-06 07:30] VITALS: BP 97/48
[2021-08-06] MEDS: MULTIVIT, IRON, MIN NO. 8, FA TABLET PO SCH (08:48)
[2021-08-06] MEDS: GABAPENTIN 300 MG CAPSULE PO SCH (08:48)
[2021-08-06] MEDS: ASCORBIC ACID 500 MG TABLET PO SCH (08:48)
[2021-08-06] MEDS: ZINC SULFATE 220 MG CAPSULE PO SCH (08:48)
[2021-08-06] MEDS: DOCUSATE SODIUM 250 MG CAPSULE PO SCH (08:48)
[2021-08-06] MEDS: CHOLECALCIFEROL 1,000 UNIT TABLET PO SCH (08:48)
[2021-08-06] MEDS: MEMANTINE HCL 5 MG TABLET PO SCH (08:48)
[2021-08-06 08:49] VITALS: BP 118/48
[2021-08-06] MEDS: BENAZEPRIL HCL 10 MG TABLET PO SCH (08:49)
[2021-08-06] MEDS: COLCHICINE 0.6 MG TABLET PO SCH (08:49)
[2021-08-06] MEDS: FAMOTIDINE 20 MG TABLET PO SCH (08:49)
[2021-08-06] MEDS: QUETIAPINE FUMARATE 25 MG TABLET PO SCH (08:49)
[2021-08-06] MEDS: SIMETHICONE 80 MG TAB.CHEW PO SCH (08:49)
[2021-08-06] MEDS: ENSURE ENLIVE (VAN) 240 ML LIQUID PO SCH (08:50)
--- NOTE | 2021-08-06 09:00 | NUR ---
GPS: PT RECEIVED THIS MORNING ON MALI-CHAIR FOR SAFETY. PT ANXIOUS AND VERBALLY ABUSIVE TO STAFF. DENIES ANY PAIN OR DISCOMFORT. PT WILL BE DISCHARGE TODAY TO NURSING FACILITY. VITALS WITHIN NORMAL LIMITS. PT SOMEWHAT CONFUSED, EASILY GETS ANXIOUS AND IRRITABLE.
--- NOTE | 2021-08-06 09:01 | NUR ---
JANET Discharge Note: Pt will be discharged to [place], [address] via assisted living transportation by Jose Antonio (pts shaper operator) at 11AM. JANET spoke with admin coordinator, Schuyler ([phone]) and January ([phone]) at the facility who states they are ready to accept the patient today. JANET informed Schuyler to state to Jose Antonio to check in with security upon discharge time to alert [facility] for pickup. Pt is aware and agreeable with discharge plans. Pts daughter (DPOA), Hue ([phone]) and son (DPOA), Andrew ([phone]) are aware and agreeable with the discharge plan. JANET informed Andrew that Jose Antonio will provide transportation for the pt [facility]. JANET informed pts nurse Billy to contact pts MD to request a home health order for pts continuation of care at the [facility] as requested by pts daughter Hue. JANET informed nursing the assisted living works with [facility] and the RN is Eula ([phone]). Pt is alert and oriented x1(name), is unable to plan for self-care at this time; however, is willing to accept care at returning [facility] living, [place]. Pt denies any suicidal or homicidal ideation. Pt will follow-up at the facility with their outpatient Psychiatrist and Cloth Shearing Supervisor. Pt presents with calm mood and congruent affect. PHARMACY: [facility] [phone]) [address] [place] [address].
[2021-08-06 11:27] LABS: CREATININE 0.7 mg/dL (0.6-1.3); MAGNESIUM 2.2 mg/dL (1.8-2.4); POTASSIUM 4.2 mmol/L (3.5-5.1)
[2021-08-06] MEDS: LORAZEPAM 0.5 MG TABLET PO PRN (11:49)
--- NOTE | 2021-08-06 12:25 | NUR ---
GPS: STAT EKG ORDER DONE AND APPROVED BY FISH CONSERVATIONIST FOR DISCHARGE.
--- NOTE | 2021-08-06 12:30 | NUR ---
GPS: PT WAS DISCHARGED TODAY TO [facility]. PT VERBALLY ABUSIVE TO STAFF AND EASILY GETS IRRITABLE. PT ALERT AND ORIENTED TO NAME ONLY. SOMEWHAT CONFUSED. FIXATED WITH HER PURSES EVEN THOUGH IT WAS ALREADY IN HER POSSESSION. ALL STUFFS AND BELONGINGS GIVEN. PT UNABLE TO SIGN THE PAPERS. WHEELED OUTSIDE TO FRONT LOBBY. WAS GLAZIER STAINED GLASS BY FACILITY TRANSPORTATION. CALLED [facility] FOR PSYCHIATRIC MEDICATION ORDERED BY DR CASTILLO AND ACQUISITIONS EDITOR JAMIN FOLEY. PYSHIATRIC MEDICINE ORDERED FOR 3O DAYS WITH NO REFILL. PT WILL BE SEEN BY OUTPT PSYCHIATRIST AND ACQUISITIONS EDITOR. PT BECAME CALM AND ON CONGRUENT AFFECT ON DISCHARGE.
--- NOTE | 2021-08-06 14:02 | NUR ---
JANET Family Contact: JANET contacted pt's daughter, Hue ([phone]) per daughter's voicemail request regarding labs. JANET left a voicemail for a call back stating updated results per Dr. Jimenez about Labs and second EKG.
== END 2021-08-06 12:45 | DRG 885 ==
LOC: ER 16:00 → GPS 21:29
PROVIDERS: ADMIT Psychiatry & Neurology Psychosomatic Medicine; ATTEND Nurse Practitioner Family
DX: F25.0 Schizoaffective disorder, bipolar type (principal); F01.50 Vascular dementia, unspecified severity, without behavioral disturbance, psychotic disturbance, mood disturbance, and anxiety; E44.1 Mild protein-calorie malnutrition; G30.9 Alzheimer's disease, unspecified; E55.9 Vitamin D deficiency, unspecified; E78.5 Hyperlipidemia, unspecified; E88.09 Other disorders of plasma-protein metabolism, not elsewhere classified; F41.9 Anxiety disorder, unspecified; M19.90 Unspecified osteoarthritis, unspecified site; F60.3 Borderline personality disorder; Z20.822 Contact with and (suspected) exposure to COVID-19; F29 Unspecified psychosis not due to a substance or known physiological condition; R73.9 Hyperglycemia, unspecified; I10 Essential (primary) hypertension; M81.8 Other osteoporosis without current pathological fracture; Z68.22 Body mass index [BMI] 22.0-22.9, adult; R74.01 Elevation of levels of liver transaminase levels; G31.83 Neurocognitive disorder with Lewy bodies; F02.80 Dementia in other diseases classified elsewhere, unspecified severity, without behavioral disturbance, psychotic disturbance, mood disturbance, and anxiety
CPT/HCPCS: 36415; 70450; 71045; 80164; 82747; 83735; 83921; 84443; 84484; 85014; 85025; 85730; 87086; 93005; 97161; A4663; G0480; J2060; J2358; J3420